=== PATIENT | male | born 1955 | race Caucasian/White ===

== ENCOUNTER 2016-09-14 22:00 | Emergency (ER) | payer SELFPAY ==
[2016-09-14 22:00] VITALS: BMI 30.7
[2016-09-14 22:23] VITALS: RESP 18
--- NOTE | 2016-09-14 22:30 | C.PDOC ---
History Of Present Illness 61 year old male who presents to the ER with a complaint of a frontal headache, nasal congestion, subjective fever/chills, and body aches. Patient reports he had flu like symptoms 2 days ago. Patient states he took advil and benadryl intermittently with some relief; however, headache returned. Denies dizziness, earache, or neck pain. Time Seen by Provider: 09/14/16 22:26 Chief Complaint (Nursing): Headache History Per: Patient History/Exam Limitations: no limitations Onset/Duration Of Symptoms: Days Current Symptoms Are (Timing): Still Present Preceeding Symptoms: None Associated Symptoms: denies: Nausea, Vomiting Recent travel outside of the [place]: No Past Medical History Reviewed: Historical Data, Nursing Documentation, Vital Signs Vital Signs: Last Vital Signs Temp 99.7 F H 09/14/16 23:20 Pulse 66 09/14/16 23:20 Resp 18 09/14/16 23:20 BP 123/80 09/14/16 23:20 Pulse Ox 98 09/15/16 00:53 - Medical History PMH: No Chronic Diseases Surgical History: No Surg Hx Family History: States: Unknown Family Hx - Social History Hx Alcohol Use: No Hx Substance Use: No - Immunization History Hx Influenza Vaccination: No Hx Pneumococcal Vaccination: No Review Of Systems Constitutional: Positive for: Fever, Chills ENT: Positive for: Nose Congestion. Negative for: Ear Pain Musculoskeletal: Negative for: Neck Pain Neurological: Positive for: Headache. Negative for: Dizziness Physical Exam - Physical Exam Appears: Non-toxic Skin: Normal Color, Warm, Dry Head: Atraumatic, Normacephalic, Tenderness (Reproducible to frontal sinus) Eye(s): bilateral: Normal Inspection, PERRL Ear(s): Bilateral: Normal Nose: Discharge (clear) Oral Mucosa: Moist Throat: Normal, No Erythema, No Exudate Neck: Normal, No Supple Chest: Symmetrical, No Tenderness Cardiovascular: Rhythm Regular, No Murmur Respiratory: Normal Breath Sounds, No Rales, No Rhonchi, No Wheezing Gastrointestinal/Abdominal: Soft, No Tenderness Neurological/Psych: Oriented x3, Normal Speech, Normal Cognition, Normal Motor, Normal Sensation Gait: Steady ED Course And Treatment O2 Sat by Pulse Oximetry: 98 (Room air) Pulse Ox Interpretation: Normal Progress Note: Toradol administered. Patient is resting comfortably, and is in no acute distress; pain and symptoms have improved. Patient was instructed to follow up with PMD in 1-2 days for further evaluation. Patient does agree with plan and understands return precautions Disposition Counseled Patient/Family Regarding: Diagnosis, Need For Followup - Disposition Referrals: [facility] [Outside] Disposition: HOME/ ROUTINE Disposition Time: 22:35 Condition: STABLE Additional Instructions: [facility] con day doctor Regresa si peor Prescriptions: Cetirizine HCl [Zyrtec] 10 mg PO DAILY #20 capsule Naproxen [Naprosyn] 1 tab PO BID PRN #25 tab PRN Reason: Pain Instructions: Sinusitis (ED) Print Language: ENGLISH - Clinical Impression Clinical Impression: Sinusitis, Sinus headache - Scribe Statement The provider has reviewed the documentation as recorded by the Scribrichard Jaeger All medical record entries made by the Casiibrichard were at my direction and personally dictated by me. I have reviewed the chart and agree that the record accurately reflects my personal performance of the history, physical exam, medical decision making, and the department course for this patient. I have also personally directed, reviewed, and agree with the discharge instructions and disposition.
[2016-09-14 23:20] VITALS: BP 123/80; PULSE 66; TEMP 99.7
[2016-09-15 00:49] VITALS: O2SAT 98
== END 2016-09-14 23:22 | disposition home or self-care (01) ==
LOC: C.ER 22:00
DX: J32.9 Chronic sinusitis, unspecified (principal)
CPT/HCPCS: 96372; 99284; J1885